=== PATIENT | male | born 1980 | race Caucasian/White ===

== ENCOUNTER 2016-09-04 17:59 | Emergency (ER) | payer OTHER ==
[2016-09-04 18:43] LABS: ABSOLUTE BASOPHIL COUNT 0 /CUMM (0.0-0.2); ABSOLUTE EOSINOPHIL COUNT 0 /CUMM (0.0-0.7); ABSOLUTE GRANULOCYTE CT 4.3 /CUMM (1.4-6.5); ABSOLUTE LYMPH COUNT 1.2 /CUMM (1.2-3.4); ABSOLUTE MONOCYTE COUNT 0.6 /CUMM (0.10-0.60); BASOPHIL % 0.2 % (0.0-2.0); EOSINOPHIL % 0.3 % (0-5); GRANULOCYTE % 70.4 % (42.2-75.2); HEMATOCRIT 45.7 % (42-52); MEAN CORPUSCULAR HGB 31.1 PG (27.0-31.0); MEAN CORPUSCULAR HGB CONC 33.5 G/DL (33.0-37.0); MEAN CORPUSCULAR VOLUME 92.8 FL (80.0-94.0); MEAN PLATELET VOLUME 9.1 FL (7.4-10.4); PLATELET COUNT 188 /CUMM (130-400); RBC DISTRIBUTION WIDTH 13.7 % (11.5-14.5); RED BLOOD CELL CT 4.93 /CUMM (4.70-6.10); WHITE BLOOD CELL COUNT 6.2 /CUMM (4.8-10.8)
--- NOTE | 2016-09-04 21:07 | ED GI/GU/ABDOMINAL COMPLAINT ---
History of Present Illness General Chief Complaint: General Adult Stated Complaint: "HE NEEDS A C-DIFF" PER Source: patient Exam Limitations: no limitations Vital Signs & Intake/Output Vital Signs & Intake/Output Vital Signs Date Time Temp Pulse Resp B/P B/P Pulse O2 O2 Flow FiO2 Mean Ox Delivery Rate 09/056 98.3 80 18 134/80 09/05 0456 98.3 80 18 134/80 99 Room Air 09/05 0256 98.3 81 18 135/72 97 Room Air 09/05 0252 98.3 81 18 135/72 09/05 0052 98.6 86 18 136/76 09/05 0052 98.6 86 18 136/76 98 Room Air 09/04 2133 97.1 82 20 138/80 100 Room Air 09/04 1821 97.4 85 16 145/93 09/04 1819 97.4 85 16 14593 99 Room Air Allergies Coded Allergies: No Known Allergies (09/04/16) Reconcile Medications Clonazepam 0.5 MG TABLET 1 TAB PO PRN ANXIETY (Reported) Escitalopram Oxalate 10 MG TABLET 1 TAB PO DAILY MENTAL HEALTH (Reported) Fish Oil/Dha/Epa (Fish Oil 1,200 MG Fish Oil) (Unknown Strength) CAPSULE ( Unknown Dose) PO DAILY SUPPLEMENT (Reported) Metoprolol Succinate 50 MG TAB.ER.24H 1 TAB PO DAILY BP (Reported) Multivitamin (Multi-Day Vitamins) 1 EACH TABLET 1 TAB PO DAILY SUPPLEMENT ( Reported) Naltrexone HCl 50 MG TABLET 1 TAB PO DAILY SUBSTANCE ABUSE (Reported) Omeprazole 40 MG CAPSULE.DR 1 CAP PO DAILY GI (Reported) Triage Note: PT STATES HE IS HERE FOR A CDIFF TEST IN ORDER TO GO TO [facility] IN [place]. STATES HIS LAST DRINK WAS YESTERDAY. PT CALM/COOPERATIVE. Triage Nurses Notes Reviewed? yes HPI: Patient is a 36 yo M with pmhx of chronic diarreah, GERD,etoh abuse, depression and htn presenting to the ED for a C.diff test before being admitted to [facility] for alcohol abuse treatment. The patient states he has had loose stools for the past 15 years. He has about 3-4 bowel movements per day. He says the stool is brown in color with some mucus. He has not noticed any blood in his toilet, dark stools, or blood when he wipes. The patient states that he is followed by GI periodically due to his family history of grandfather having esophageal cancer. He was last seen by GI 5 months ago and his last colonoscopy was 3 years ago. He states his last, colonoscopy was normal. The patient reports he drinks about 6-8 beers or glasses of wine a day. His last drink was last night. The patient is currently feeling anxious but does not feel like he is withdrawing. He denies any headaches,disorientation, visual or auditory hallucinations. He denies any fevers, chills, night sweats, abdominal pain, nausea vomiting, chest pain, shortness of breath or any changes in elimination. (TAMERA RICE,LINDA) Past History Travel History Traveled to [place] past 21 day No Medical History Any Pertinent Medical History? see below for history Cardiovascular: hypertension Gastrointestinal: GERD, chronic loose BM 3-4x/day Psychiatric: depression Surgical History Surgical History: right bicep tendon repair Psychosocial History What is your primary language Estonian Tobacco Use: Never used ETOH Use: alcoholic Illicit Drug Use: marijuana Family History Family History, If Any: Relation not specified for: FH: esophageal cancer Hx Contributory? No (TAMERA RICE,LINDA) Review of Systems Review of Systems Constitutional: Denies: chills, diaphoresis, fever. EENTM: Denies: no symptoms. Respiratory: Denies: short of breath. Cardiovascular: Denies: chest pain. GI: Reports: see HPI. Denies: abdominal pain, nausea, vomiting. Genitourinary: Denies: dysuria, frequency, hematuria, nocturia. Neurological/Psychological: Reports: anxiety, other. Denies: confusion, headache. (TAMERA RICE,LINDA) Physical Exam Physical Exam General Appearance: well developed/nourished, alert, awake, mild distress Head: atraumatic, normal appearance Eyes: Bilateral: PERRL, EOMI. Respiratory: normal breath sounds Cardiovascular: regular rate/rhythm Peripheral Pulses: 2+ radial (R), 2+ radial (L) Gastrointestinal: normal bowel sounds, soft, non-tender, no organomegaly Neurologic/Psych: awake, alert, oriented x 3, normal gait, abnormal TECTONOPHYSICIST II-XII Core Measures ACS in differential dx? No Severe Sepsis Present: No Septic Shock Present: No (TAMERA RICE,LINDA) Progress Differential Diagnosis: IBS, IBD, gluten insensitivity/intolerance, c. diff, giardia or other intestinal infection, glucose/galactose/lactose malabsorption, gastritis, GERD, carcinoid tumor, Plan of Care: Orders Procedure Date/time Status CIWA 09/05 1807 Active C.DIFFICILE 09/05 1807 Active ETHANOL 09/05 1807 Complete COMPREHENSIVE METABOLIC PANEL 09/05 1807 Complete CBC WITHOUT DIFFERENTIAL 09/05 1807 Complete Laboratory Tests 09/04/16 1829: Anion Gap 12, Estimated GFR > 60, BUN/Creatinine Ratio 17.8, Glucose 86, Calcium 9.9, Total Bilirubin 1.0, AST 35, ALT 44, Alkaline Phosphatase 64, Total Protein 8.0, Albumin 5.0, Globulin 3.0, Albumin/Globulin Ratio 1.7, CBC w Diff NO MAN DIFF REQ, RBC 4.93, MCV 92.8, MCH 31.1 H, RDW 13.7, MPV 9.1, Gran % 70.4, Lymphocytes % 19.7 L, Monocytes % 9.4 H, Eosinophils % 0.3, Basophils % 0.2, Absolute Granulocytes 4.3, Absolute Lymphocytes 1.2, Absolute Monocytes 0.6, Absolute Eosinophils 0, Absolute Basophils 0, PUBS MCHC 33.5, Serum Alcohol < 10.0 Microbiology 09/04 2129 STOOL: Clostridium difficile Toxin A & B - RECD 09/05/2016 7:21:11 AM Patient signed out to me by Dr. Pritchett. Pending C. difficile results for transfer to [facility]. Lab called. C. difficile results will only be resulted at 2 PM. 7:34 AM PATIENT PREFERS TO WAIT AT HOME FOR RESULTS OF TEST. WILL CALL AFTER 2 PM. (CECILIA DOWELL MD) Initial ED EKG: none Hand-Off Endorsed To: ELEN PRITCHETT MD Pending: labs (C.diff) Comments: Patient is here for C.diff test before admittance to [facility]. He was held overnight to monitor for withdrawal with [facility] protocol. C.diff stool antigen pending. He will be picked up in the AM to be admitted to [facility]. (TAMERA RICE,[facility]) Hand-Off Endorsed To: CECILIA DOWELL MD Endorsed Time: 0700 (ELEN PRITCHETT MD) Departure Departure Condition: Stable Clinical Impression Primary Impression: Frequent loose stools Referrals: BENJA CAMPOS MD (PCP/Family) Departure Forms: Customer Survey General Discharge Information (TAMERA RICE,[facility]) Departure Time of Disposition: 733 Disposition: HOME OR SELF CARE Additional Instructions: CALL [phone] AFTER 2 PM TO OBTAIN THE RESULTS OF YOUR STOOL CULTURE THEN FOLLOW UP WITH HIGHWATCH (DELMER RICE,CECILIA)
[2016-09-04] MEDS ORDERED: CLONAZEPAM0.5 M2 PO (21:18)
[2016-09-04] MEDS ORDERED: OMEPRAZOLE40 M1 PO (21:18)
[2016-09-04] MEDS ORDERED: ESCITALOPRAM OX10 MG PO (21:18)
[2016-09-04] MEDS ORDERED: METOPROLOL SUCC50 M2 PO (21:18)
[2016-09-04] MEDS ORDERED: FISH OIL 1,2001 EACH PO (21:19)
[2016-09-04] MEDS ORDERED: NALTREXONE HCL50 M1 PO (21:19)
[2016-09-04] MEDS ORDERED: MULTI-DAY VITA1 EACH PO (21:19)
[2016-09-05 04:56] VITALS: BP 134/80
== END 2016-09-05 07:50 ==
LOC: ERH 17:59
PROVIDERS: Emergency Medicine
DX: R19.7 Diarrhea, unspecified (principal)
CPT/HCPCS: G0480